=== PATIENT | male | born 1950 | race Two or more races ===

== ENCOUNTER 2018-05-15 10:36 | Outpatient (CLI) | payer OTHER | END 2018-05-15 10:41 | disposition home or self-care (01) | LOC: NUCLEAR 10:36 | DX: R55 Syncope and collapse (principal) ==

== ENCOUNTER 2018-06-08 10:41 | Outpatient (CLI) | payer OTHER | END 2018-06-08 10:44 | disposition home or self-care (01) | LOC: RAD 10:41 | DX: M54.5 Low back pain (principal); M54.6 Pain in thoracic spine ==

== ENCOUNTER 2018-06-14 13:09 | Outpatient (CLI) | payer OTHER | END 2018-06-14 13:22 | disposition home or self-care (01) | LOC: NUCLEAR 13:09 | DX: M81.0 Age-related osteoporosis without current pathological fracture (principal) ==

== ENCOUNTER 2019-10-30 09:27 | Outpatient (CLI) | payer OTHER | END 2019-10-30 09:36 | disposition home or self-care (01) | LOC: SONOGRAMA 09:27 | DX: N42.89 Other specified disorders of prostate (principal) ==

== ENCOUNTER 2019-11-21 14:20 | Emergency (ER) | payer OTHER ==
[~2019-11-21] VITALS: Ht 172.7 cm; Wt 59.0 kg
[2019-11-21] MEDS ORDERED: SIMVASTATIN10 MG (14:46)
[2019-11-21] MEDS ORDERED: RESTORIL15 MG (14:47)
[2019-11-21] MEDS ORDERED: SERTRALINE HCL50 MG (14:48)
[2019-11-21] MEDS ORDERED: UROXATRAL10 MG (14:48)
[2019-11-21] MEDS ORDERED: LACTULOSE10 GM/15 M PO (21:30)
== END 2019-11-21 21:58 | disposition home or self-care (01) ==
LOC: ER 14:20
DX: K59.09 Other constipation (principal)

== ENCOUNTER 2020-10-16 10:30 | Outpatient (CLI) | payer OTHER ==
[~2020-10-16 10:30] MED LIST: LACTULOSE10 GM/15 M PO; RESTORIL15 MG; SERTRALINE HCL50 MG; SIMVASTATIN10 MG; UROXATRAL10 MG; ZANAFLEX2 MG PO
== END 2020-10-16 10:34 | disposition home or self-care (01) ==
LOC: NUCLEAR 10:30
PROVIDERS: ATTEND Internal Medicine Cardiovascular Disease
DX: I10 Essential (primary) hypertension (principal)

== ENCOUNTER → 2020-11-05 | Outpatient (CLI) | payer OTHER | END | disposition home or self-care (01) | LOC: SONOGRAMA 11:32 | PROVIDERS: ATTEND Internal Medicine Cardiovascular Disease | DX: E03.8 Other specified hypothyroidism (principal); E04.2 Nontoxic multinodular goiter ==

== ENCOUNTER 2020-12-07 08:19 | Outpatient (CLI) | payer OTHER | END 2020-12-07 08:21 | disposition home or self-care (01) | LOC: NUCLEAR 08:19 | PROVIDERS: ATTEND Internal Medicine Rheumatology | DX: M25.50 Pain in unspecified joint (principal); M70.71 Other bursitis of hip, right hip | CPT/HCPCS: 78315; A9503 ==

== ENCOUNTER 2020-12-10 07:57 | Outpatient (CLI) | payer OTHER | END 2020-12-10 08:04 | disposition home or self-care (01) | LOC: SONOGRAMA 07:57 | PROVIDERS: ATTEND Pathology Anatomic Pathology & Clinical Pathology | DX: E04.1 Nontoxic single thyroid nodule (principal); D34 Benign neoplasm of thyroid gland; E04.8 Other specified nontoxic goiter ==

== ENCOUNTER 2022-03-10 10:58 | Outpatient (CLI) | payer OTHER | END 2022-03-10 11:07 | disposition home or self-care (01) | LOC: TOM 10:58 | PROVIDERS: ATTEND Psychiatry & Neurology Clinical Neurophysiology | DX: I63.30 Cerebral infarction due to thrombosis of unspecified cerebral artery (principal) | CPT/HCPCS: 70551 ==

== ENCOUNTER 2022-04-26 09:43 | Outpatient (CLI) | payer OTHER | END 2022-04-26 09:56 | disposition home or self-care (01) | LOC: MRI 09:43 | PROVIDERS: ATTEND Colon & Rectal Surgery | DX: K62.89 Other specified diseases of anus and rectum (principal) | CPT/HCPCS: 72197; Q9965 ==

== ENCOUNTER 2022-06-26 20:33 | Emergency (ER) | payer OTHER ==
[~2022-06-26] VITALS: Ht 172.7 cm; Wt 59.0 kg
[2022-06-26] MEDS ORDERED: ADULT LOW DOSE81 M1 (20:56)
[2022-06-27] MEDS ORDERED: TAMS0.4C PO (02:48)
[2022-06-27] MEDS ORDERED: CEPHALEXIN500 MG PO (02:48)
== END 2022-06-27 04:52 ==
LOC: ER 20:33
DX: R33.9 Retention of urine, unspecified (principal)

== ENCOUNTER 2022-08-02 14:13 | Inpatient (IN) | payer OTHER ==
[~2022-08-02] VITALS: Ht 170.2 cm; Wt 86.2 kg
[~2022-08-02 14:13] MED LIST changes: +ADULT LOW DOSE81 M1; +CEPHALEXIN500 MG PO; +TAMS0.4C PO
--- NOTE | 2022-08-02 14:26 | NUR ---
PTE ALERTA Y ORIENTADA POR CHEPE ESFERAS CON BUEN PATRON RESPIRATORIO. REFIERE QUE TIENE DOLOR ABDOMINAL EN CUADRANTES DERECHO DESDE HACE 3 BAUER ATRAS. EN ADICIONAL REFIERE QUE TIENE SIMBA CIRUGIA PROGRAMADO CON DR.LOPEZ BENAVIDES EN SOLOMON MES.
--- NOTE | 2022-08-02 14:28 | NUR ---
PTE ACLARA QUE LA CIRUGIA ESTA PROGRAMADA CON
--- NOTE | 2022-08-02 22:27 | NUR ---
PACIENTE ALERTA Y ORIENTADA X 3 LLEGA EN AMBULACIA CANALIZADA EN MANO IZQ AGIO 18. SE LE CHARITY MUESTRAS DE RACQUEL Y SE LE ADM MEDICAMENTOS POR ORDEN MEDICA SE ORIENTA SOBRE USO Y EFECTO LA MISMA REFIERE ENTENDER. SE ALEX EN CAMA CON BARRANDAS ARRIBA Y EN ESPERA DE RE EVALUACION.
--- NOTE | 2022-08-03 07:10 | NUR ---
SE RECIBE EN EL AREA DE OBSERVACION EN EMANUEL CON BARANDAS ELEVADA Y TIMBRE ACCESIBLE PTE ALERTA Y ORIENTADOO POR 3 SE OBSERVA VENOPUNCION PATENTE Y AUGUSTINE DE EDEMA PTE NO PRESENTA DOLOR AL MOMENTO, PTE SE MANTIENE EN OBSERVACION Y BAJO TRATAMIENTO, PTE EN ESPERA DE DR MARLENE FUNES.
[2022-08-03] MEDS ORDERED: TAMSULOSIN HCL0.4 MG (11:29)
[2022-08-03] MEDS ORDERED: FAMOTIDINE20 MG (11:29)
[2022-08-08] MEDS ORDERED: AMOX-CLAV 875-1 EAC1 PO (19:09)
== END 2022-08-08 21:28 | disposition home or self-care (01) | DRG 690 ==
LOC: ER 14:13 → MEDJ 08-03 09:33
PROVIDERS: ADMIT Internal Medicine; ATTEND Internal Medicine
PROC: BW21Y0Z Computerized Tomography (CT Scan) of Abdomen and Pelvis using Other Contrast, Unenhanced and Enhanced (ICD-10-PCS; principal; 2022-08-02)
DX: N39.0 Urinary tract infection, site not specified (principal); K59.09 Other constipation; D72.829 Elevated white blood cell count, unspecified; B96.1 Klebsiella pneumoniae [K. pneumoniae] as the cause of diseases classified elsewhere; K63.89 Other specified diseases of intestine; L80 Vitiligo; E78.5 Hyperlipidemia, unspecified; E83.39 Other disorders of phosphorus metabolism; F32.89 Other specified depressive episodes; Z20.822 Contact with and (suspected) exposure to COVID-19

== ENCOUNTER 2022-09-12 10:29 | Inpatient (IN) | payer OTHER ==
[~2022-09-12] VITALS: Ht 170.2 cm; Wt 55.8 kg
[~2022-09-12 10:29] MED LIST changes: +AMOX-CLAV 875-1 EAC1 PO; +FAMOTIDINE20 MG; +TAMSULOSIN HCL0.4 MG
[2022-09-12] MEDS ORDERED: SIMVAST PO (13:10)
[2022-09-20] MEDS ORDERED: TAMSULOSIN HCL0.4 MG (08:23)
== END 2022-09-28 14:58 | disposition home or self-care (01) | DRG 329 ==
LOC: O/R 09-20 06:00 → SURH 09-20 06:00 → OB/GYN 09-20 10:45 → SURH 09-20 15:44 → ICU 09-21 17:45 → SURH 09-24 14:27
PROVIDERS: ADMIT Colon & Rectal Surgery; ATTEND Colon & Rectal Surgery
PROC: 07BC4ZZ Excision of Pelvis Lymphatic, Percutaneous Endoscopic Approach (ICD-10-PCS; 2022-09-20)
PROC: 0DBF4ZZ Excision of Right Large Intestine, Percutaneous Endoscopic Approach (ICD-10-PCS; principal; 2022-09-20 10:45)
PROC: 30233N1 Transfusion of Nonautologous Red Blood Cells into Peripheral Vein, Percutaneous Approach (ICD-10-PCS; 2022-09-22)
PROC: B24BYZZ Ultrasonography of Heart with Aorta using Other Contrast (ICD-10-PCS; 2022-09-22)
DX: K59.4 Anal spasm (principal); R57.1 Hypovolemic shock; K63.9 Disease of intestine, unspecified; D64.9 Anemia, unspecified; I95.9 Hypotension, unspecified; K59.00 Constipation, unspecified

== ENCOUNTER → 2023-02-03 | Outpatient (CLI) | payer OTHER ==
[~2023-02-03] MED LIST changes: +SIMVAST PO
== END | disposition home or self-care (01) ==
LOC: SONOGRAMA 10:38
PROVIDERS: ATTEND Internal Medicine Cardiovascular Disease
DX: E04.8 Other specified nontoxic goiter (principal)

== ENCOUNTER 2023-08-29 07:57 | Outpatient (CLI) | payer OTHER | END 2023-08-29 08:05 | disposition home or self-care (01) | LOC: TOM 07:57 | PROVIDERS: ATTEND Internal Medicine Gastroenterology | DX: R10.9 Unspecified abdominal pain (principal) ==

== ENCOUNTER 2023-12-05 16:13 | Inpatient (IN) | payer OTHER ==
[~2023-12-05] VITALS: Ht 170.2 cm; Wt 54.0 kg
[~2023-12-05 16:13] MED LIST changes: +MILK OF MA400 MG/5 M; +XANAX0.25 MG
--- NOTE | 2023-12-05 16:23 | NUR ---
SE RECIBE A PTE EN AMBULANCIA. PTE ALERTA Y ORIENTADO X3 EN COMPANIA DE CHEN HIJA. PTE DE DR. NICHOLAS, SE LE REALIZO SIMBA COLOSTOMIA EL 12/02/23 Y DESDE ENTONCES A PRESENTADO DOLOR ABDOMINAL Y CONSTIPACION.
--- NOTE | 2023-12-05 16:32 | NUR ---
PTE CON GOINS DE CASA.
[2023-12-05] MEDS ORDERED: SODIUM CHLORIDE FOR INHALATION 1 VIAL.NEB IH ONE (17:07)
[2023-12-05] MEDS ORDERED: FAMOTIDINE/PF 20 MG/2 ML VIAL IV ONE (20:30)
[2023-12-05] MEDS ORDERED: 0.9 % SODIUM CHLORIDE 500 ML IV ONE (20:30)
[2023-12-05] MEDS ORDERED: FAMOTIDINE/PF 20 MG/2 ML VIAL ONE (20:35)
--- NOTE | 2023-12-05 20:40 | NUR ---
PTE ALERTA Y DESORIENTADO X3. EN COMPANIA DE FAMILIAR. SE REALIZAN MUESTRAS DE LABS MIGUEL ANGEL ORDEN MEDICA Y BAJO MEDIDAS ASEPTICAS. SE ADMNISTRA MEDICAMENTO MIGUEL ANGEL ORDEN MEDICA.
[2023-12-05 20:56] LABS: URINE APPEARANCE Cloudy; URINE BILIRRUBIN Negative (NEGATIVE); URINE BLOOD Small; URINE COLOR Yellow; URINE LEUKOCYTE Moderate; URINE NITRATE Negative; URINE PROTEIN Trace (NEGATIVE); URINE UROBILINOGEN 0.2 E.U./dl
[2023-12-05 21:00] LABS: URINE RBC 32.9 uL (0.0-20.8)
[2023-12-05 21:07] LABS: HEMATOCRIT 39.7 % (39.0-48.0); HEMOGLOBIN 13.5 g/dL (13-16.00); MEAN CELL VOLUME 84.6 fL (80.0-100.00); MEAN CORPUSCULAR HEMOGLOBIN 28.8 pg (27.00-32.0); PLATELET COUNT 247 K/uL (150-450); RED BLOOD COUNT 4.69 M/uL (4.00-6.00); RED CELL DISTRIBUTION WIDTH 13.8 % (11.5-14.5)
[2023-12-05 21:14] LABS: URINE BACTERIA > 9821.5 uL (0.0-1933); URINE EPITHELIAL CELLS 0.9 uL (0.0-38.8); URINE GLUCOSE >=1000 MG/DL (NEGATIVE)
[2023-12-05 21:21] LABS: ALBUMIN 3.1 gm/dL (3.4-5.0); BILIRUBIN TOTAL 1.47 mg/dL (0.3-1.2); CALCIUM 9.3 mg/dL (8.5-10.1); CREATININE SERUM 0.97 mg/dL (0.70-1.30); GFR 76.08; GLOBULINA 3.8 G/DL (2.4-3.5); POTASSIUM 4.14 mEq/L (3.5-5.1); TOTAL PROTEIN 6.9 gm/dL (6.4-8.2)
[2023-12-05 22:06] LABS: BILIRUBIN TOTAL 1.39 mg/dL (0.3-1.2); BILIRUBIN,CONJUGATED 0.33 mg/dL (0.0-0.2); BILIRUBIN,UNCONJUGATED 1.06 mg/dL (0.0-0.6)
[2023-12-05] MEDS ORDERED: CEFTRIAXONE SODIUM 2,000 MG VIAL IV ONE (23:00)
[2023-12-05] MEDS ORDERED: ACETAMINOPHEN 500 MG GEL..CAP PO ONE (23:05)
[2023-12-06] MEDS ORDERED: 0.9 % SODIUM CHLORIDE 1,000 ML IV SCH (00:30)
[2023-12-06] MEDS ORDERED: LACTULOSE 20 G/30 ML BLIST.PACK PO ONE (00:30)
[2023-12-06] MEDS ORDERED: MAGNESIUM HYDROXIDE 400 MG/5 ML ML PO ONE (00:30)
[2023-12-06] MEDS ORDERED: ACETAMINOPHEN 500 MG GEL..CAP PO PRN (00:30)
[2023-12-06] MEDS ORDERED: LACTULOSE 20 G/30 ML BLIST.PACK ONE (03:38)
[2023-12-06] MEDS ORDERED: MAGNESIUM HYDROXIDE 30 ML BLIST.PACK PO ONE (03:39)
[2023-12-06] MEDS ORDERED: ACETAMINOPHEN 500 MG GEL..CAP PO ONE (04:03)
[2023-12-06 04:05] LABS: INR 1.16; PARTIAL THROMBOPLASTIN TIME 32.4 SECONDS (22.0-34.0)
[2023-12-06] MEDS ORDERED: FAMOTIDINE/PF 20 MG/2 ML VIAL ONE (08:26)
[2023-12-06] MEDS ORDERED: FAMOTIDINE/PF 20 MG in 0.9 % SODIUM CHLORIDE 8 ML IV PUSH SCH (09:00)
[2023-12-06] MEDS ORDERED: TAMSULOSIN HCL 0.4 MG CAP PO SCH (09:00)
[2023-12-06] MEDS ORDERED: CEFTRIAXONE SODIUM 2,000 MG in 0.9 % SODIUM CHLORIDE 100 ML IV SCH (09:00)
[2023-12-06] MEDS ORDERED: TEMAZEPAM 15 MG CAPSULE PO SCH (21:00)
[2023-12-07 07:04] LABS: HEMATOCRIT 34.9 % (39.0-48.0); HEMOGLOBIN 12.3 g/dL (13-16.00); MEAN CELL VOLUME 86.4 fL (80.0-100.00); MEAN CORPUSCULAR HEMOGLOBIN 30.4 pg (27.00-32.0); MEAN CORPUSCULAR HGB CONC 35.2 g/dl (32.0-36.0); PLATELET COUNT 246 K/uL (150-450); RED BLOOD COUNT 4.04 M/uL (4.00-6.00); RED CELL DISTRIBUTION WIDTH 13.4 % (11.5-14.5)
[2023-12-07 07:33] LABS: ALBUMIN 2.6 gm/dL (3.4-5.0); BILIRUBIN TOTAL 0.49 mg/dL (0.3-1.2); CALCIUM 8.7 mg/dL (8.5-10.1); CREATININE SERUM 0.68 mg/dL (0.70-1.30); GFR 114.63; GLOBULINA 3.1 G/DL (2.4-3.5); MAGNESIUM 1.8 mg/dL (1.8-2.4); PHOSPHOROUS 2.5 mg/dL (2.5-4.9); POTASSIUM 4.75 mEq/L (3.5-5.1); TOTAL PROTEIN 5.7 gm/dL (6.4-8.2)
[2023-12-07 07:47] LABS: C-REACTIVE PROTEIN 9.25 MG/DL (0.00-0.29); PROSTATIC SPECIFIC ANTIGEN 8.24 NG/ML (0.010-4.00)
[2023-12-07] MEDS ORDERED: SODIUM CL 0.9% 100 ML IV.SOLN IV ONE (08:51)
[2023-12-07 11:00] LABS: ob NEGATIVE (NEGATIVE)
[2023-12-07 11:02] LABS: FECAL LEUKOCYTES NEGATIVE (NEGATIVE)
[2023-12-07] MEDS ORDERED: VANCOMYCIN HCL 125 MG/7.5 ML BLIST.PACK PO SCH (14:00)
[2023-12-07] MEDS ORDERED: HYDROCORTISONE 2.5% 30 GM TUBE RECTAL SCH (17:00)
[2023-12-08 06:45] LABS: PH,URINE 7.5 (5.0-8.0); URINE APPEARANCE Clear; URINE BILIRRUBIN Negative (NEGATIVE); URINE BLOOD Small; URINE COLOR Yellow; URINE GLUCOSE Negative (NEGATIVE); URINE LEUKOCYTE Large; URINE NITRATE Negative; URINE PROTEIN Negative (NEGATIVE); URINE UROBILINOGEN 0.2 E.U./dl
[2023-12-08 06:50] LABS: URINE BACTERIA 2023.4 uL (0.0-1933); URINE RBC 86.7 uL (0.0-20.8); URINE WBC 239.4 uL (0.0-23.2)
[2023-12-08] MEDS ORDERED: SIMETHICONE 125 MG CAPSULE PO SCH (17:00)
[2023-12-08] MEDS ORDERED: FAMOtidine 20 MG TABLET PO SCH (21:00)
[2023-12-08] MEDS ORDERED: TRAMADOL HCL 50 MG TABLET PO PRN (22:00)
[2023-12-10 06:26] LABS: BILIRUBIN TOTAL 0.57 mg/dL (0.3-1.2); CALCIUM 9.2 mg/dL (8.5-10.1); CREATININE SERUM 0.67 mg/dL (0.70-1.30); GFR 116.6; GLOBULINA 3.5 G/DL (2.4-3.5); MAGNESIUM 1.8 mg/dL (1.8-2.4); POTASSIUM 4.49 mEq/L (3.5-5.1); TOTAL PROTEIN 6.5 gm/dL (6.4-8.2)
[2023-12-10 07:40] LABS: HEMATOCRIT 37.3 % (39.0-48.0); HEMOGLOBIN 12.9 g/dL (13-16.00); MEAN CELL VOLUME 85.5 fL (80.0-100.00); MEAN CORPUSCULAR HEMOGLOBIN 29.4 pg (27.00-32.0); MEAN CORPUSCULAR HGB CONC 34.4 g/dl (32.0-36.0); PLATELET COUNT 341 K/uL (150-450); RED BLOOD COUNT 4.37 M/uL (4.00-6.00); RED CELL DISTRIBUTION WIDTH 13.6 % (11.5-14.5)
[2023-12-10] MEDS ORDERED: LACTOBACILLUS ACIDOPHILUS 1 CAP CAP PO SCH (13:26)
[2023-12-11] MEDS ORDERED: AMPICILLIN SODIUM/SULBACTAM NA 3,000 MG in 0.9 % SODIUM CHLORIDE 100 ML IV SCH (09:00)
[2023-12-13 07:42] LABS: HEMATOCRIT 39.9 % (39.0-48.0); HEMOGLOBIN 13.5 g/dL (13-16.00); MEAN CELL VOLUME 85.8 fL (80.0-100.00); MEAN CORPUSCULAR HEMOGLOBIN 29.1 pg (27.00-32.0); MEAN CORPUSCULAR HGB CONC 33.9 g/dl (32.0-36.0); PLATELET COUNT 380 K/uL (150-450); RED BLOOD COUNT 4.66 M/uL (4.00-6.00)
[2023-12-13 08:39] LABS: ALBUMIN 3.3 gm/dL (3.4-5.0); BILIRUBIN TOTAL 0.78 mg/dL (0.3-1.2); CALCIUM 9.8 mg/dL (8.5-10.1); CREATININE SERUM 0.82 mg/dL (0.70-1.30); GFR 92.35; GLOBULINA 3.7 G/DL (2.4-3.5); MAGNESIUM 1.9 mg/dL (1.8-2.4); PHOSPHOROUS 2.7 mg/dL (2.5-4.9); POTASSIUM 4.69 mEq/L (3.5-5.1)
[2023-12-13] MEDS ORDERED: FAMOTIDINE20 MG PO (18:21)
[2023-12-13] MEDS ORDERED: INTESTINEX680 M1 PO (18:22)
[2023-12-13] MEDS ORDERED: SIMETHICONE125 M1 PO (18:23)
== END 2023-12-13 18:49 | disposition home or self-care (01) | DRG 690 ==
LOC: ER 16:13 → SEC-K 12-06 00:28 → MEDI 12-06 15:10 → MEDJ 12-07 15:54
PROVIDERS: General Practice; Internal Medicine Infectious Disease; Nurse Practitioner Family; ADMIT Internal Medicine; ATTEND Internal Medicine
PROC: BW21YZZ Computerized Tomography (CT Scan) of Abdomen and Pelvis using Other Contrast (ICD-10-PCS; principal; 2023-12-05)
PROC: BW4GZZZ Ultrasonography of Pelvic Region (ICD-10-PCS; 2023-12-07)
PROC: 02HV33Z Insertion of Infusion Device into Superior Vena Cava, Percutaneous Approach (ICD-10-PCS; 2023-12-09)
DX: N39.0 Urinary tract infection, site not specified (principal); N41.0 Acute prostatitis; A04.72 Enterocolitis due to Clostridium difficile, not specified as recurrent; B95.2 Enterococcus as the cause of diseases classified elsewhere; B96.89 Other specified bacterial agents as the cause of diseases classified elsewhere

== ENCOUNTER → 2024-07-02 | Emergency (ER) | payer OTHER ==
[~2024-07-02] VITALS: Ht 172.7 cm; Wt 53.1 kg
[~2024-07-02] MED LIST changes: +ALEVE ARTHRITI100 GM TOP; +DOLOGESIC 500-1 EACH PO; +FAMOTIDINE20 MG PO; +INTESTINEX680 M1 PO; +SIMETHICONE125 M1 PO; +TIZANIDINE HCL4 MG PO
== END | disposition left against medical advice (07) ==
LOC: ER 11:50
DX: Z53.21 Procedure and treatment not carried out due to patient leaving prior to being seen by health care provider (principal)

== ENCOUNTER 2024-07-06 12:05 | Emergency (ER) | payer OTHER ==
[~2024-07-06] VITALS: Ht 152.4 cm; Wt 72.6 kg
[2024-07-06] MEDS ORDERED: PEPCID AC20 MG (12:17)
[2024-07-06] MEDS ORDERED: TAMSULOSIN HCL0.4 MG PO (12:18)
[2024-07-06] MEDS ORDERED: RESTORIL15 M1 PO (12:18)
[2024-07-06] MEDS ORDERED: XANAX XR0.5 MG PO (12:18)
[2024-07-06 13:35] LABS: HEMATOCRIT 41.8 % (39.0-48.0); MEAN CELL VOLUME 87.2 fL (80.0-100.00); MEAN CORPUSCULAR HEMOGLOBIN 29.3 pg (27.00-32.0); MEAN CORPUSCULAR HGB CONC 33.6 g/dl (32.0-36.0); PLATELET COUNT 208 K/uL (150-450); RED CELL DISTRIBUTION WIDTH 13.2 % (11.5-14.5)
[2024-07-06 14:12] LABS: ALBUMIN 3.9 gm/dL (3.4-5.0); BILIRUBIN TOTAL 0.82 mg/dL (0.3-1.2); CALCIUM 9.9 mg/dL (8.5-10.1); CREATININE SERUM 0.82 mg/dL (0.70-1.30); GFR 92.35; GLOBULINA 3.3 G/DL (2.4-3.5); POTASSIUM 5.18 mEq/L (3.5-5.1); TOTAL PROTEIN 7.2 gm/dL (6.4-8.2)
[2024-07-06 14:24] LABS: PH,URINE 7.5 (5.0-8.0); URINE APPEARANCE Clear; URINE BILIRRUBIN Negative (NEGATIVE); URINE BLOOD Negative; URINE COLOR Yellow; URINE GLUCOSE Negative (NEGATIVE); URINE KETONE Negative (NEGATIVE); URINE LEUKOCYTE Small; URINE NITRATE Negative; URINE PROTEIN Negative (NEGATIVE); URINE UROBILINOGEN 0.2 E.U./dl
[2024-07-06 14:28] LABS: URINE EPITHELIAL CELLS 3.7 uL (0.0-38.8); URINE WBC 72.9 uL (0.0-23.2)
[2024-07-06 14:29] LABS: URINE BACTERIA > 9821.5 uL (0.0-1933); URINE CAST 0.14 uL (0.0-1.40); URINE RBC 0.4 uL (0.0-20.8)
[2024-07-06] MEDS ORDERED: KETOROLAC TROMETHAMINE 15 MG VIAL IV ONE (14:45)
[2024-07-06] MEDS ORDERED: KETOROLAC TROMETHAMINE 30 MG VIAL ONE (15:16)
== END 2024-07-06 22:36 | disposition home or self-care (01) ==
LOC: ER 12:05
PROVIDERS: General Practice
DX: R10.2 Pelvic and perineal pain (principal); Z88.8 Allergy status to other drugs, medicaments and biological substances; Z98.890 Other specified postprocedural states; N39.0 Urinary tract infection, site not specified
CPT/HCPCS: 36415; 74177; 96365; 99284; J1885; Q9965

== ENCOUNTER 2024-08-02 10:29 | Outpatient (CLI) | payer OTHER ==
[~2024-08-02 10:29] MED LIST changes: +PEPCID AC20 MG; +RESTORIL15 M1 PO; +TAMSULOSIN HCL0.4 MG PO; +XANAX XR0.5 MG PO
== END 2024-08-02 10:34 | disposition home or self-care (01) ==
LOC: SONOGRAMA 10:29
PROVIDERS: ATTEND Specialist
DX: N40.1 Benign prostatic hyperplasia with lower urinary tract symptoms (principal); R33.9 Retention of urine, unspecified